=== PATIENT | male | born 1945 | race Two or more races ===

== ENCOUNTER 2024-12-26 16:36 | Emergency (ER) | payer OTHER, BC ==
[~2024-12-26] VITALS: Ht 167.6 cm; Wt 63.5 kg
[2024-12-26] MEDS ORDERED: LOTREL 5-10 MG1 CAP (16:44)
[2024-12-26] MEDS ORDERED: DIPHENHYDRAMINE HCL 25 MG CAPSULE PO STA (18:17)
[2024-12-26] MEDS ORDERED: METHYLPREDNISOLONE SOD SUCC 125 MG VIAL IM STA (18:18)
== END 2024-12-26 20:19 | disposition home or self-care (01) ==
LOC: ER 16:36
DX: T78.40XA Allergy, unspecified, initial encounter (principal); Z88.1 Allergy status to other antibiotic agents; R23.2 Flushing
CPT/HCPCS: 96372; 99282; J3490